=== PATIENT | male | born 1975 | race Caucasian/White ===

== ENCOUNTER 2024-02-18 00:53 | Emergency (ER) | payer SELFPAY ==
[~2024-02-18] VITALS: Ht 177.8 cm; Wt 73.0 kg
[2024-02-18 01:01] VITALS: BP 142/94; PULSE 82; RESP 16; TEMP 97.8; O2SAT 98
[2024-02-18 03:51] LABS: HEMATOCRIT. 36.5 % (42.0-52.0); HEMOGLOBIN. 12.5 g/dL (14.0-18.0); MEAN CORPUSCULAR HEMOGLOBIN 31.1 pg (28.0-32.0); MEAN CORPUSCULAR HGB CONC 34.3 g/dL (31.0-37.0); MEAN CORPUSCULAR VOLUME 90.8 fL (80.0-94.0); MEAN PLATELET VOLUME 7.6 fl (7.4-10.4); PLATELET 451 x1000/uL (130-400); RED BLOOD CELL COUNT 4.02 mill/uL (4.7-6.1); RED CELL DISTRIBUTION WIDTH 14.9 % (11.6-14.6); WHITE BLOOD COUNT 25.7 x1000/uL (4.5-11.0)
[2024-02-18 03:54] LABS: DIFFERENTIAL COMMENT 1
[2024-02-18 04:01] LABS: AMMONIA 33 uMol/L (<32); ETHANOL BLOOD < 10 mg/dL (<10)
[2024-02-18 04:02] LABS: ACETAMINOPHEN < 2 ug/mL (10-30)
[2024-02-18 04:03] LABS: TROPONIN I HIGH SENSITIVITY < 4 ng/L (3.0-53)
[2024-02-18] MEDS ORDERED: SODIUM CHLORIDE 0.9% 1,000 ML IV ONE (05:15)
[2024-02-18] MEDS ORDERED: VANCOMYCIN 1G PREMIX 200 ML IV ONE (05:15)
[2024-02-18] MEDS ORDERED: PIPERACILLIN/TAZO 3.375G/50ML 50 ML IV ONE (05:15)
[2024-02-18 05:20] LABS: CHLORIDE 102 mEq/L (98-107); POTASSIUM 4.2 mEq/L (3.5-5.1); SODIUM 136 mEq/L (136-145)
[2024-02-18 05:21] LABS: CARBON DIOXIDE 27 mEq/L (21-32)
[2024-02-18 05:22] LABS: CALCIUM 9.4 mg/dL (8.7-10.4)
[2024-02-18 05:26] LABS: CREATININE 0.8 mg/dL (0.6-1.3); GLUCOSE 65 mg/dL (70-105); UREA NITROGEN BLOOD 14 mg/dL (9-23)
[2024-02-18 05:28] LABS: ALANINE AMINOTRANSFERASE 18 IU/L (10-49); ALBUMIN 4.8 g/dL (3.2-4.8); ASPARTATE AMINOTRANSFERASE 61 IU/L (<34)
[2024-02-18 05:29] LABS: BILIRUBIN TOTAL 0.2 mg/dL (0.1-1.0); PROTEIN TOTAL 8.2 g/dL (6.0-8.3)
[2024-02-18 05:50] LABS: CREATINE KINASE 1685 IU/L (46-171)
[2024-02-18 08:26] LABS: PLATELET ESTIMATE INCREASED
== END 2024-02-18 05:27 | disposition left against medical advice (07) ==
LOC: ER 00:53
DX: Z76.0 Encounter for issue of repeat prescription (principal)
CPT/HCPCS: 80053; 80307; 80329; 80320; 82140; 82550; 85025; 84484; 36415; 84145; 71045; 73610; 73630; 70450; 99284; J7030; G0480

== ENCOUNTER 2024-09-17 17:17 | Emergency (ER) | payer MEDICARE, MEDICAID ==
[~2024-09-17] VITALS: Ht 177.8 cm; Wt 70.0 kg
[~2024-09-17 17:17] MED LIST: OLAN5TAB74 MT
[2024-09-17] MEDS: HALOPERIDOL LACTATE 5MG/ML VIAL IM STA (17:55)
[2024-09-17] MEDS: LORAZEPAM 2MG/ML INJ IV STA (17:55)
[2024-09-17] MEDS: DIPHENHYDRAMINE 50MG/ML VIAL IM STA (17:55)
[2024-09-17] MEDS: LORAZEPAM 2MG/ML INJ IM ONE (20:06)
[2024-09-18 05:50] LABS: EOSINOPHILS % 0.8 % (0.0-5.0); HEMATOCRIT. 37.8 % (42.0-52.0); HEMOGLOBIN. 12.5 g/dL (14.0-18.0); LYMPHOCYTES % 14.1 % (20.0-50.0); MEAN CORPUSCULAR HEMOGLOBIN 30.3 pg (28.0-32.0); MEAN CORPUSCULAR HGB CONC 33.1 g/dL (31.0-37.0); MEAN CORPUSCULAR VOLUME 91.5 fL (80.0-94.0); MEAN PLATELET VOLUME 9.1 fl (7.4-10.4); MONOCYTES % 7.7 % (2.0-8.0); NEUTROPHILS % 76.4 % (40.0-76.0); PLATELET 319 x1000/uL (130-400); RED BLOOD CELL COUNT 4.13 mill/uL (4.7-6.1); RED CELL DISTRIBUTION WIDTH 16.3 % (11.6-14.6); WHITE BLOOD COUNT 10.3 x1000/uL (4.5-11.0)
[2024-09-18 05:59] LABS: CHLORIDE 105 mEq/L (98-107); SODIUM 138 mEq/L (136-145)
[2024-09-18 06:00] LABS: CALCIUM 8.8 mg/dL (8.7-10.4); CARBON DIOXIDE 25 mEq/L (21-32)
[2024-09-18 06:05] LABS: CREATININE 0.7 mg/dL (0.6-1.3); GLUCOSE 77 mg/dL (70-105); UREA NITROGEN BLOOD 8 mg/dL (9-23)
[2024-09-18 06:07] LABS: ACETAMINOPHEN < 2 ug/mL (10-30)
[2024-09-18 06:31] LABS: ETHANOL BLOOD < 10 mg/dL (<10)
[2024-09-18] MEDS: OLANZAPINE 5MG TABLET ODT PO SCH (10:17)
[2024-09-18 12:30] LABS: CLARITY URINE CLEAR (CLEAR); COLOR URINE YELLOW (YELLOW); GLUCOSE URINE NEGATIVE (NEGATIVE); KETONES URINE NEGATIVE (NEGATIVE); LEUKOCYTE ESTERASE URINE TRACE (NEGATIVE); NITRITE URINE NEGATIVE (NEGATIVE); OCCULT BLOOD URINE NEGATIVE (NEGATIVE); PROTEIN URINE NEGATIVE (NEGATIVE); SPECIFIC GRAVITY URINE 1.015 (1.005-1.030); UROBILINOGEN URINE 0.2 E.U./dL (0.2-1.0)
[2024-09-18 12:42] LABS: *AMPHETAMINES SCREEN URINE NEGATIVE (NEGATIVE); *BARBITURATES SCREEN URINE NEGATIVE (NEGATIVE); *BENZODIAZEPINES SCREEN URINE NEGATIVE (NEGATIVE); *COCAINE SCREEN URINE NEGATIVE (NEGATIVE); CANNABINOID URINE SCREEN NEGATIVE (NEGATIVE); ECSTASY MDMA SCREEN URINE NEGATIVE (NEGATIVE); METHADONE URINE SCREEN NEGATIVE (NEGATIVE); OPIATES URINE SCREEN NEGATIVE (NEGATIVE); PHENCYCLIDINE URINE SCREEN NEGATIVE (NEGATIVE)
[2024-09-18 12:56] LABS: BACTERIA URINE 1+; RBC URINE NONE SEEN /hpf (0-2); SQUAMOUS EPITHELIAL CELL URINE NONE SEEN /lpf (RARE/1+); WBC URINE 0-2 /hpf (0-2); YEAST URINE NONE SEEN
[2024-09-19] MEDS: DIPHENHYDRAMINE 50MG/ML VIAL IM ONE ×2 (17:28→20:15)
[2024-09-19] MEDS: OLANZAPINE 10 MG/VIAL IM ONE (17:28)
[2024-09-19] MEDS: HALOPERIDOL LACTATE 5MG/ML VIAL IM ONE (20:15)
[2024-09-19] MEDS: LORAZEPAM 2MG/ML INJ IM ONE (20:15)
[2024-09-19] MEDS: ZIPRASIDONE MESYLATE 20MG/VIAL IM ONE (22:04)
[2024-09-19 23:00] VITALS: O2SAT 98
[2024-09-20 07:15] VITALS: TEMP 36.72516
[2024-09-20 13:30] VITALS: BP 111/72; PULSE 68; RESP 18; O2SAT 99
[2024-09-20] MEDS: HALOPERIDOL LACTATE 5MG/ML VIAL IM STA (14:20)
[2024-09-20] MEDS: LORAZEPAM 2MG/ML INJ IM ONE (14:20)
[2024-09-20] MEDS: DIPHENHYDRAMINE 50MG/ML VIAL IM STA (14:21)
== END 2024-09-20 14:39 ==
LOC: ER 17:17
DX: R45.851 Suicidal ideations (principal); Z20.822 Contact with and (suspected) exposure to COVID-19; Z98.890 Other specified postprocedural states; Z86.59 Personal history of other mental and behavioral disorders
CPT/HCPCS: 80305; 80048; 81003; 80307; 80329; 80320; 85025; 36415; 96372 ×3; 96374; 99291; 87426; J1200 ×3; J1630 ×3; J2060 ×3; J3490; J3486; G0480